=== PATIENT | male | born 1935 | race Caucasian/White ===

== ENCOUNTER 2023-02-16 16:12 | Inpatient (IN) | payer OTHER, SELFPAY ==
[2023-02-16] VITALS (29 sets, daily range): BP systolic 83–114; BP diastolic 51–72; PULSE 57–92; RESP 10–41; TEMP 36.2; O2SAT 88–100; BMI 21.9
--- NOTE | 2023-02-16 19:08 | ED.GENADULT ---
HPI - General Adult General Chief complaint: Abdominal Pain Stated complaint: Hypotension Time Seen by Provider: 02/16/23 18:01 Source: patient, family and EMS Mode of arrival: EMS Limitations: no limitations History of Present Illness HPI narrative: Patient is an 87-year-old male. He is a DNR/DNI with selective treatment. His POLST form is available for review. He was brought to the emergency department from [facility] for evaluation of jaundice for the past couple days, right upper quadrant abdominal pain and then today episodes of hypotension. Patient states that he is not having any changes in his urine or his stool. He is on oxygen and this is baseline for him and he does not have any chest pain or shortness of breath. No palpitations. He describes pain in the upper portion of his abdomen specifically on the right. Somewhat difficult for him to complete describe how long this has been going on but it has least been there for the past couple days. He denies any vomiting. He states he is taking all the medicines that the facility is giving him. He does have bilateral lower extremity edema where he does have a history CHF. Related Data Allergies Allergy/AdvReac Type Severity Reaction Status Date / Time amoxicillin [From Augmentin] Allergy Verified 02/17/23 00:20 clavulanic acid Allergy Verified 02/17/23 00:20 [From Augmentin] ezetimibe Allergy Verified 02/17/23 00:20 lisinopril Allergy Verified 02/17/23 00:20 Penicillins Allergy Verified 02/17/23 00:20 Uhsohat-DMG-PsA Reductase Allergy Verified 02/17/23 00:20 Inhibitor cholestyramine AdvReac Verified 02/17/23 00:20 Review of Systems Review of Systems ROS Unobtainable: All systems reviewed & are unremarkable except as noted in HPI and below Patient History Medical History Anxiety Atrial fibrillation BPH (benign prostatic hyperplasia) CHF (congestive heart failure) COPD (chronic obstructive pulmonary disease) 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 H/O gastroesophageal reflux (GERD) Hyperlipidemia Exam Initial Vital Signs Initial Vital Signs: Vital Signs Pulse Rate 66 02/16/23 16:25 Respiratory Rate 36 H 02/16/23 16:25 Const General: cooperative, well developed and ill appearing [facility] Head: normal to inspection and normocephalic Eyes Other: Scleral icterus Chest Chest: No crepitus and No tenderness Resp Effort & Inspection: normal respiratory effort Auscultation: clear to auscultation bilaterally Cardio Rate: regular rate Rhythm: regular rhythm GI Inspection: normal to inspection and non-distended Palpation: soft and tender (Right upper quadrant) Skin Other: Jaundice Neuro General: patient alert, patient awake and moves all extremities Speech: speech normal Extrem General: edema Course Orders Ordered: Sodium Chloride (Normal Saline 0.9%) 1,000 mls @ 125 mls/hr IV CONT KEELY Last Admin: 02/16/23 23:05 Dose: 125 mls/hr Documented By: Discontinued Medications Sodium Chloride (Normal Saline 0.9%) 1,000 mls @ 1,000 mls/hr IV BOLUS ONE Stop: 02/16/23 20:08 Last Infusion: 02/16/23 22:00 Dose: 0 mls/hr Documented By: Admin: 02/16/23 20:15 Dose: 1,000 mls/hr Documented By: Vital Signs Vital signs: Vital Signs - 8 hr 02/16/23 22:45 02/16/23 22:45 02/16/23 22:56 Pulse Rate 67 Respiratory Rate 11 L Blood Pressure 83/56 L 83/57 L Pulse Oximetry 92 Oxygen Delivery Method Oxygen Flow Rate 02/16/23 22:56 02/16/23 23:00 02/16/23 23:00 Pulse Rate 66 67 Respiratory Rate 10 L 10 L Blood Pressure 106/68 Pulse Oximetry 88 L 100 Oxygen Delivery Method Oxygen Flow Rate 02/16/23 23:15 02/16/23 23:15 02/16/23 23:30 Pulse Rate 67 70 Respiratory Rate 10 L 19 Blood Pressure 114/55 L Pulse Oximetry 99 99 Oxygen Delivery Method Oxygen Flow Rate 02/16/23 23:45 02/16/23 23:45 02/17/23 00:00 Pulse Rate 62 Respiratory Rate 12 Blood Pressure 103/56 L 99/56 L Pulse Oximetry 96 Oxygen Delivery Method Oxygen Flow Rate 02/17/23 00:00 02/17/23 00:15 02/17/23 00:15 Pulse Rate 59 L 63 Respiratory Rate 10 L 10 L Blood Pressure 96/57 L Pulse Oximetry 97 97 Oxygen Delivery Method Nasal Cannula Oxygen Flow Rate 4 02/17/23 00:30 02/17/23 00:30 02/17/23 00:45 Pulse Rate 64 68 Respiratory Rate 19 22 Blood Pressure 109/78 Pulse Oximetry 92 93 Oxygen Delivery Method Nasal Cannula Oxygen Flow Rate 4 02/17/23 00:45 02/17/23 01:00 02/17/23 01:00 Pulse Rate 62 Respiratory Rate 11 L Blood Pressure 93/59 L 104/53 L Pulse Oximetry 100 Oxygen Delivery Method Oxygen Flow Rate 02/17/23 01:15 02/17/23 01:15 02/17/23 01:30 Pulse Rate 64 Respiratory Rate 10 L Blood Pressure 94/55 L 95/65 Pulse Oximetry 100 Oxygen Delivery Method Oxygen Flow Rate 02/17/23 01:30 02/17/23 01:45 02/17/23 01:45 Pulse Rate 64 68 Respiratory Rate 11 L 13 Blood Pressure 98/66 Pulse Oximetry 100 100 Oxygen Delivery Method Oxygen Flow Rate 02/17/23 02:00 02/17/23 02:00 02/17/23 02:15 Pulse Rate 63 Respiratory Rate 11 L Blood Pressure 105/61 93/54 L Pulse Oximetry 99 Oxygen Delivery Method Oxygen Flow Rate 02/17/23 02:15 02/17/23 02:30 02/17/23 02:45 Pulse Rate 60 59 L Respiratory Rate 10 L 10 L Blood Pressure 90/57 L Pulse Oximetry 99 99 Oxygen Delivery Method Oximask Oxygen Flow Rate 4 02/17/23 02:45 02/17/23 03:00 02/17/23 03:00 Pulse Rate 63 61 Respiratory Rate 9 L 10 L Blood Pressure 86/52 L Pulse Oximetry 99 100 Oxygen Delivery Method Oxygen Flow Rate 02/17/23 03:16 02/17/23 03:16 02/17/23 03:30 Pulse Rate 80 87 Respiratory Rate 20 22 Blood Pressure 92/67 Pulse Oximetry 99 95 Oxygen Delivery Method Nasal Cannula Nasal Cannula Oxygen Flow Rate 2 2 02/17/23 04:00 02/17/23 04:00 02/17/23 04:30 Pulse Rate 70 68 Respiratory Rate 21 18 Blood Pressure 90/61 Pulse Oximetry 98 99 Oxygen Delivery Method Nasal Cannula Nasal Cannula Oxygen Flow Rate 2 2 02/17/23 05:00 02/17/23 05:00 02/17/23 05:30 Pulse Rate 67 73 Respiratory Rate 20 19 Blood Pressure 104/63 Pulse Oximetry 100 99 Oxygen Delivery Method Nasal Cannula Nasal Cannula Oxygen Flow Rate 2 2 Medical Decision Making Medical Records Medical records reviewed: Yes I reviewed the patient's medical records. Lab Data Lab results reviewed: Yes I reviewed the patient's lab results. 02/16/23 17:00 02/16/23 17:00 Labs: Lab Results 02/16/23 02/16/23 02/16/23 Range/Units 17:00 17:00 17:00 WBC 6.6 (4.5-11.0) X10^3/uL RBC 3.34 L (4.5-5.9) X10^6/uL Hgb 10.6 L (13.5-17.5) g/dL Hct 31.3 L (41-53) % MCV 93.8 (80-100) fL MCH 31.7 (26-34) PG MCHC 33.8 (30-36) % RDW 20.6 H (11.6-14.8) % Plt Count 171 (150-400) X10^3/uL Neut % (Auto) 87.5 H (50-75) % Lymph % (Auto) 4.0 L (25-40) % [place] % (Auto) 8.1 (3-14) % Eos % (Auto) 0.3 L (2-4) % Baso % (Auto) 0.1 (0-2) % Neut # (Auto) 5800 (5407-6820) /uL Lymph # (Auto) 300 L (3763-6867) /uL [place] # (Auto) 500 (0-900) /uL Eos # (Auto) 0 (0-450) /uL Baso # (Auto) 0 (0-100) /uL RBC Morphology See below Hypochromasia 1+ H Target Cells 1+ H PT (10.1-12.7) SECONDS INR (0.9-1.3) APTT (26-36) SECONDS Sodium 138 (137-145) mmol/L Potassium 3.3 L (3.4-5.1) mmol/L Chloride 93 L (98-107) mmol/L Carbon Dioxide 35 H (22-32) mmol/L BUN 41 H (9-20) mg/dL Creatinine 1.28 H (0.66-1.25) mg/dL Estimated GFR 55 L (>60) mL/min BUN/Creatinine Ratio 32.0 H (6-22) Glucose 85 (80-110) mg/dL Lactate 1.0 (0.7-2.1) mmol/L Calcium 8.2 L (8.4-10.2) mg/dL Total Bilirubin 13.4 H (0.2-1.3) mg/dL Conjugated Bilirubin 9.3 H (0.0-0.3) md/dL Unconjugated Bilirubin 1.6 H (0.0-1.1) mg/dL AST 209 H (17-59) IU/L ALT 84 H (<50) IU/L Alkaline Phosphatase 1094 H (38-126) U/L Ammonia (9-30) umol/L Total Protein 6.2 L (6.3-8.2) g/dL Albumin 2.8 L (3.5-5.0) g/dL Globulin 3.4 (1.7-4.1) g/dL Albumin/Globulin Ratio 0.8 L (1.0-2.8) Lipase 180 (23-300) U/L Acetaminophen < 10 (10-30) ug/mL Ethyl Alcohol < 10 ( - 10) mg/dL 02/16/23 02/16/23 Range/Units 17:00 19:50 WBC (4.5-11.0) X10^3/uL RBC (4.5-5.9) X10^6/uL Hgb (13.5-17.5) g/dL Hct (41-53) % MCV (80-100) fL MCH (26-34) PG MCHC (30-36) % RDW (11.6-14.8) % Plt Count (150-400) X10^3/uL Neut % (Auto) (50-75) % Lymph % (Auto) (25-40) % [place] % (Auto) (3-14) % Eos % (Auto) (2-4) % Baso % (Auto) (0-2) % Neut # (Auto) (4106-0503) /uL Lymph # (Auto) (1943-2731) /uL [place] # (Auto) (0-900) /uL Eos # (Auto) (0-450) /uL Baso # (Auto) (0-100) /uL RBC Morphology Hypochromasia Target Cells PT 21.6 H (10.1-12.7) SECONDS INR 1.9 H (0.9-1.3) APTT 34 (26-36) SECONDS Sodium (137-145) mmol/L Potassium (3.4-5.1) mmol/L Chloride (98-107) mmol/L Carbon Dioxide (22-32) mmol/L BUN (9-20) mg/dL Creatinine (0.66-1.25) mg/dL Estimated GFR (>60) mL/min BUN/Creatinine Ratio (6-22) Glucose (80-110) mg/dL Lactate (0.7-2.1) mmol/L Calcium (8.4-10.2) mg/dL Total Bilirubin (0.2-1.3) mg/dL Conjugated Bilirubin (0.0-0.3) md/dL Unconjugated Bilirubin (0.0-1.1) mg/dL AST (17-59) IU/L ALT (<50) IU/L Alkaline Phosphatase (38-126) U/L Ammonia 10 (9-30) umol/L Total Protein (6.3-8.2) g/dL Albumin (3.5-5.0) g/dL Globulin (1.7-4.1) g/dL Albumin/Globulin Ratio (1.0-2.8) Lipase (23-300) U/L Acetaminophen (10-30) ug/mL Ethyl Alcohol ( - 10) mg/dL Imaging Data CT scan - abdomen/pelvis: Radiologist's Impression: PROCEDURE:? CT ABDOMEN PELVIS W CON ? INDICATIONS:? Hyperbilirubinemia with abdominal pain ? TECHNIQUE:? After the administration of intravenous contrast, axial sections acquired from the lung bases to the pubic symphysis.? Coronal and sagittal reformats were performed.? For radiation dose reduction, the following was used:? automated exposure control, adjustment of mA and/or kV according to patient size.? ? COMPARISON:? None. ? FINDINGS:? Image quality:? Excellent.? ? Lung bases:? Moderate pleural effusions. Heart:? Cardiomegaly. ? ABDOMEN: Liver:? Unremarkable.? ? Gallbladder:? Marked distension.? No stones. Biliary ducts:? Marked distension.? Abrupt termination in the pancreatic head. Pancreas:? Pancreatic head mass measuring 3.2 x 2.4 centimeters (series 4, image 41).? Pancreatic atrophy.? No significant pancreatic ductal dilation.? Scattered pancreatic cystic lesions. Spleen:? Unremarkable.? ? Adrenal Glands:? Unremarkable.? ? Kidneys and Ureters:? No hydronephrosis.? No complex renal cystic lesions which require follow-up. ? Stomach and Bowel: Colonic diverticulosis without evidence of diverticulitis. Peritoneum:? Small volume ascites. ? Ventral Wall:? ?No hernias.? Anasarca.? Abdominal Nodes:? No retroperitoneal or mesenteric adenopathy by size criteria.? Vessels:? 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 Ectatic right common iliac artery.? Occluded right internal iliac artery. ? PELVIS: Pelvic Organs:? Unremarkable.? ? Bladder:? Unremarkable.? ? Pelvic Nodes: No enlarged lymph nodes.? Miscellaneous:? Trace fluid within the right inguinal canal. ? Bones:? Degenerative changes present. ? ? IMPRESSION:? Obstructing 3.2 x 2.1 centimeter mass in the pancreatic head, resulting in severe intrahepatic and extrahepatic biliary dilation, and severe gallbladder distension with focal wall thickening.? Differential includes pancreatic adenocarcinoma versus cholangiocarcinoma.? No pancreatic ductal dilation. ? Third-spacing of fluids, with moderate pleural effusions, anasarca and small volume ascites. ? Other chronic findings as above.? US - abdomen: Radiologist's Impression: ROCEDURE: US ABDOMEN LIMITED ? INDICATIONS:? Hyperbilirubinemia ? TECHNIQUE:? Real-time focused scanning was performed of the abdomen, with image documentation.? ? COMPARISON:? [facility], CT, CT ABDOMEN PELVIS W CON, 02/16/2023, 19:37. ? FINDINGS:? ? Liver: The liver demonstrates no focal mass lesions.? ? Gallbladder: The gallbladder is markedly distended suggestive of gallbladder hydrops.? There is layering biliary sludge in the gallbladder without discrete stones.? There is a small amount of pericholecystic fluid.? Patient was reportedly tender on examination. ? Biliary system:? There is marked intrahepatic biliary ductal dilatation.? Extrahepatic ducts are also dilated, measuring up to 1.3 cm in diameter with layering sludge distally. ? Pancreas:? Not well seen due to bowel gas. ? IMPRESSION:? ? 1. Intra and extrahepatic biliary ductal dilatation consistent with sequelae of obstructing mass in the pancreatic head as seen on the concurrent CT. ? 2. Hydropic distention of the gallbladder with layering biliary sludge.? No gallstones or gallbladder wall thickening.? ECG Data Attestation: I personally reviewed and interpreted this ECG as follows: Interpretation: Ventricular rate is 60 Normal axis LVH Occasional ventricular paced rhythm MDM Narrative Medical decision making narrative: Patient is visibly jaundiced. He reports right upper quadrant abdominal pain. His bilirubin and LFTs are elevated. CT scan and right upper quadrant ultrasound show what appears to be a pancreatic head mass which is causing dilation of the hepatobiliary system. This is most likely the source of his jaundice. I did have a discussion with the patient's family regarding his symptoms. I did recommend that we transfer to a facility that has GI capability for stent placement and then there can be further discussions about how much more of a workup they would like to do with regard to the pancreatic mass. I did tell them that this was concerning for malignancy. The family was agreeable to transfer. The patient was resting comfortably. Attempted to contact multiple facilities and [facility] and there were no beds available. We will continue to observe patient here in the emergency department until bed placement can be found. Care turned over to day provider to follow-up and disposition.
--- NOTE | 2023-02-16 19:09 | DI.CT.S_ITS ---
PROCEDURE: CT ABDOMEN PELVIS W CON INDICATIONS: Hyperbilirubinemia with abdominal pain TECHNIQUE: After the administration of intravenous contrast, axial sections acquired from the lung bases to the pubic symphysis. Coronal and sagittal reformats were performed. For radiation dose reduction, the following was used: automated exposure control, adjustment of mA and/or kV according to patient size. COMPARISON: None. FINDINGS: Image quality: Excellent. Lung bases: Moderate pleural effusions. Heart: Cardiomegaly. ABDOMEN: Liver: Unremarkable. Gallbladder: Marked distension. No stones. Biliary ducts: Marked distension. Abrupt termination in the pancreatic head. Pancreas: Pancreatic head mass measuring 3.2 x 2.4 centimeters (series 4, image 41). Pancreatic atrophy. No significant pancreatic ductal dilation. Scattered pancreatic cystic lesions. Spleen: Unremarkable. Adrenal Glands: Unremarkable. Kidneys and Ureters: No hydronephrosis. No complex renal cystic lesions which require follow-up. Stomach and Bowel: Colonic diverticulosis without evidence of diverticulitis. Peritoneum: Small volume ascites. Ventral Wall: No hernias. Anasarca. Abdominal Nodes: No retroperitoneal or mesenteric adenopathy by size criteria. 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 Ectatic right common iliac artery. Occluded right internal iliac artery. PELVIS: Pelvic Organs: Unremarkable. Bladder: Unremarkable. Pelvic Nodes: No enlarged lymph nodes. Miscellaneous: Trace fluid within the right inguinal canal. Bones: Degenerative changes present. IMPRESSION: Obstructing 3.2 x 2.1 centimeter mass in the pancreatic head, resulting in severe intrahepatic and extrahepatic biliary dilation, and severe gallbladder distension with focal wall thickening. Differential includes pancreatic adenocarcinoma versus cholangiocarcinoma. No pancreatic ductal dilation. Third-spacing of fluids, with moderate pleural effusions, anasarca and small volume ascites. Other chronic findings as above. Dictated by: Jean Motley M.D. on 02/16/2023 at 20:11 Approved by: Jean Motley M.D. on 02/16/2023 at 20:17
--- NOTE | 2023-02-16 19:10 | DI.US.S_ITS ---
PROCEDURE: US ABDOMEN LIMITED INDICATIONS: Hyperbilirubinemia TECHNIQUE: Real-time focused scanning was performed of the abdomen, with image documentation. COMPARISON: [facility], CT, CT ABDOMEN PELVIS W CON, 02/16/2023, 19:37. FINDINGS: Liver: The liver demonstrates no focal mass lesions. Gallbladder: The gallbladder is markedly distended suggestive of gallbladder hydrops. There is layering biliary sludge in the gallbladder without discrete stones. There is a small amount of pericholecystic fluid. Patient was reportedly tender on examination. Biliary system: There is marked intrahepatic biliary ductal dilatation. Extrahepatic ducts are also dilated, measuring up to 1.3 cm in diameter with layering sludge distally. Pancreas: Not well seen due to bowel gas. IMPRESSION: 1. Intra and extrahepatic biliary ductal dilatation consistent with sequelae of obstructing mass in the pancreatic head as seen on the concurrent CT. 2. Hydropic distention of the gallbladder with layering biliary sludge. No gallstones or gallbladder wall thickening. Dictated by: Carl Gong M.D. on 02/16/2023 at 21:53 Approved by: Carl Gong M.D. on 02/16/2023 at 21:56
[2023-02-16 19:26] LABS: Add Manual Diff / Slide Review NO; Basophils Absolute Auto 0 /uL (0-100); Basophils Percent Auto 0.1 % (0-2); Eosinophils Absolute Auto 0 /uL (0-450); Eosinophils Percent Auto 0.3 % (2-4); Hematocrit 31.3 % (41-53); Hemoglobin 10.6 g/dL (13.5-17.5); Lymphocytes Absolute Auto 300 /uL (1100-4500); Mean Corpuscular HGB Conc 33.8 % (30-36); Mean Corpuscular Hemoglobin 31.7 PG (26-34); Mean Corpuscular Volume 93.8 fL (80-100); Monocytes Absolute Auto 500 /uL (0-900); Monocytes Percent Auto 8.1 % (3-14); Neutrophils Absolute Auto 5800 /uL (1500-7000); Neutrophils Percent Auto 87.5 % (50-75); Platelet Count 171 X10^3/uL (150-400); Red Blood Cell Count 3.34 X10^6/uL (4.5-5.9); Red Cell Distribution Width 20.6 % (11.6-14.8); White Blood Cell Count 6.6 X10^3/uL (4.5-11.0)
[2023-02-16 19:27] LABS: INR 1.9 (0.9-1.3); Prothrombin Time 21.6 SECONDS (10.1-12.7)
[2023-02-16 19:30] LABS: PTT Partial Thromboplastin Tim 34 SECONDS (26-36)
[2023-02-16 19:34] LABS: Acetaminophen < 10 ug/mL (10-30); Alanine Aminotransferase 84 IU/L (<50); Albumin 2.8 g/dL (3.5-5.0); Albumin Globulin Ratio 0.8 (1.0-2.8); Alkaline Phosphatase 1094 U/L (38-126); Aspartate Aminotransferase 209 IU/L (17-59); Bilirubin Conjugated 9.3 md/dL (0.0-0.3); Bilirubin Total 13.4 mg/dL (0.2-1.3); Bilirubin Unconjugated 1.6 mg/dL (0.0-1.1); Blood Urea Nitrogen 41 mg/dL (9-20); Calcium 8.2 mg/dL (8.4-10.2); Chloride 93 mmol/L (98-107); Estimated Glomerular Filt Rate 55 mL/min (>60); Ethanol (ETOH) < 10 mg/dL; Globulin 3.4 g/dL (1.7-4.1); Glucose 85 mg/dL (80-110); HEMOLYSIS < 15 (0-50); Lipase 180 U/L (23-300); Potassium 3.3 mmol/L (3.4-5.1); Sodium 138 mmol/L (137-145); Total Protein 6.2 g/dL (6.3-8.2)
[2023-02-16 19:39] LABS: Carbon Dioxide 35 mmol/L (22-32)
[2023-02-16 20:13] LABS: Ammonia (NH3) 10 umol/L (9-30)
[2023-02-16] MEDS: SODIUM CHLORIDE 0.9% 1,000 ML 1000 ML IV (20:15)
[2023-02-16 20:19] LABS: Hypochromasia 1+; Target Cells 1+
--- NOTE | 2023-02-16 21:53 | PC.NURSE ---
Pt sleeping, rouses to voice, A&Ox4. Family at bedside.
[2023-02-16] MEDS: SODIUM CHLORIDE 0.9% 1,000 ML 125 ML IV (23:05)
[2023-02-17] VITALS (97 sets, daily range): BP systolic 86–125; BP diastolic 52–85; PULSE 59–90; RESP 9–36; TEMP 35.9–37.1; O2SAT 83–100; BMI 21.9
--- NOTE | 2023-02-17 01:56 | PC.NURSE ---
OLIVE KNOCKER note: Attempting to find bed to transfer patient to. Called the following hospitals, at the following times, with the following responses: 2244: [facility]. No med-surg beds. Faxed over facesheet, on waitlist. 2248:[facility], 10 boarding in their ER. No beds. Faxed over facesheet, on waitlist [id number] [facility] [place]: Andrea, asked me to send over [facility], pushed images. Checked at 0144, no beds. But on list. 0144: [facility]: [facility]. No beds at [facility], and the ER is level loading at [place] (I didn't know what that meant, but she said no beds) 0150: [place]. Left message for household appliance mechanic to call me back. 0153: [place], no med surg beds.
[2023-02-17] MEDS: SODIUM CHLORIDE 0.9% 1,000 ML 125 ML IV (07:16)
[2023-02-17] MEDS: SODIUM CHLORIDE 0.9% 1,000 ML 100 ML IV (08:51)
[2023-02-17 08:53] LABS: Add Manual Diff / Slide Review NO; Basophils Absolute Auto 0 /uL (0-100); Basophils Percent Auto 0.1 % (0-2); Eosinophils Absolute Auto 0 /uL (0-450); Eosinophils Percent Auto 0.5 % (2-4); Hematocrit 33.6 % (41-53); Hemoglobin 11.3 g/dL (13.5-17.5); Lymphocytes Absolute Auto 200 /uL (1100-4500); Lymphocytes Percent Auto 3.7 % (25-40); Mean Corpuscular HGB Conc 33.6 % (30-36); Mean Corpuscular Hemoglobin 31.7 PG (26-34); Mean Corpuscular Volume 94.3 fL (80-100); Monocytes Absolute Auto 400 /uL (0-900); Monocytes Percent Auto 6.6 % (3-14); Neutrophils Absolute Auto 5900 /uL (1500-7000); Neutrophils Percent Auto 89.1 % (50-75); Platelet Count 166 X10^3/uL (150-400); Red Blood Cell Count 3.56 X10^6/uL (4.5-5.9); Red Cell Distribution Width 20.6 % (11.6-14.8); White Blood Cell Count 6.7 X10^3/uL (4.5-11.0)
--- NOTE | 2023-02-17 08:54 | DI.RAD.S_ITS ---
PROCEDURE: XR CHEST 1V INDICATIONS: sob TECHNIQUE: One view of the chest was acquired. COMPARISON: None. FINDINGS: Surgical changes and devices: Left subclavian vascular stent. Remote CABG. Lungs and pleura: Pulmonary edema. Question underlying chronic interstitial pulmonary fibrosis. Small bilateral pleural effusions and bibasilar atelectasis. Mediastinum: Mediastinal contours appear normal. Cardiomegaly. Bones and chest wall: No suspicious bony lesions. Overlying soft tissues appear unremarkable. IMPRESSION: Congestive heart failure exacerbation. Question underlying chronic pulmonary interstitial fibrosis. Dictated by: Ye Ojeda M.D. on 02/17/2023 at 9:50 Approved by: Ye Ojeda M.D. on 02/17/2023 at 9:52
[2023-02-17 09:06] LABS: Lactate (Lactic Acid) 0.8 mmol/L (0.7-2.1)
[2023-02-17 09:08] LABS: Alanine Aminotransferase 74 IU/L (<50); Albumin 2.6 g/dL (3.5-5.0); Albumin Globulin Ratio 0.8 (1.0-2.8); Alkaline Phosphatase 1017 U/L (38-126); Aspartate Aminotransferase 190 IU/L (17-59); BUN Creatinine Ratio 35.5 (6-22); Bilirubin Total 13.4 mg/dL (0.2-1.3); Blood Urea Nitrogen 39 mg/dL (9-20); Carbon Dioxide 35 mmol/L (22-32); Chloride 98 mmol/L (98-107); Estimated Glomerular Filt Rate > 60 mL/min (>60); Globulin 3.1 g/dL (1.7-4.1); Glucose 56 mg/dL (80-110); HEMOLYSIS 24 (0-50); Lipase 47 U/L (23-300); Potassium 3.3 mmol/L (3.4-5.1); Sodium 140 mmol/L (137-145); Total Protein 5.7 g/dL (6.3-8.2)
[2023-02-17 09:16] LABS: NT-proBNP (BNP-Adult 18+) 6010 pg/mL (<450)
[2023-02-17 09:20] LABS: Anisocytosis 1+; Ovalocytes 1+
[2023-02-17] MEDS: AMIODARONE 150 MG/100 ML PIGGYBACK 600 MG IV (10:01)
--- NOTE | 2023-02-17 10:18 | PC.NURSE ---
BOARD CERTIFIED BEHAVIORAL ANALYST Note: Called the hospitals for pt on the waitlist. [facility] and [facility] still boarding and have no beds. Spoke with Rochelle at [facility] and stated that pt was not put on the list, so I proceeded to put them on their list. called back stating that pt has [employer] as primary insurance with them, so this BOARD CERTIFIED BEHAVIORAL ANALYST proceeded to call the [facility] to make sure it was clear to proceed with the transfer request. Pt has been called into the [facility] emergency hotline. Spoke with rep Rogers. Notification number: [id number]
--- NOTE | 2023-02-17 10:32 | PC.NURSE ---
This RN assisted in changing the patient immediately after an episode of incontinence. RN noted stage two pressure ulcer on coccyx. Open area 3cm in diameter with no measurable depth. Skin cleaned with wipe and normal saline. Ulcer covered with pink adhesive foam dressing. For patient comfort condom catheter placed with patient approval. catheter secured to leg with left band to patient comfort.
[2023-02-17] MEDS: AMIODARONE 360 MG/200 ML PIGGYBACK 33.33 MG IV (11:41)
[2023-02-17 13:26] LABS: Magnesium 1.7 mg/dL (1.6-2.3)
--- NOTE | 2023-02-17 13:51 | P.HP_ITS ---
History of Present Illness History of Present Illness Date Patient Seen: 02/17/23 Chief complaint: Hypotension Narrative: Alvaro Thompson is an 87-year-old male with past medical history of diffuse large B-cell lymphoma, CHF, atrial fibrillation on Eliquis s/p pacemaker, HTN, HLD, COPD, GERD, BPH, and anxiety who presents with jaundice with abd pain and in A- fib RVR. Patient was recently at [facility] for CHF exacerbation and was discharged to [facility] where he has been the past 3 weeks. He then developed acute jaundice and abd pain. CT abd in ED showed pancreatic head mass obstructing biliary system. Attempted transfer for biliary stent but he was denied and deemed too high risk for any procedure. Hospice was suggested. He had runs of A-fib RVR in the ED and amio drip started due to low BP. He will be admitted for medical management of A-fib RVR, pain control and hospice setup. Patient currently reports intermittent upper abd pain. But it is currently well- controlled. He has no NV or diarrhea. He is accepting that this new diagnosis of terminal pancreatic cancer and just wishes to not suffer at the end. [facility] Medical History Anxiety Atrial fibrillation BPH (benign prostatic hyperplasia) CHF (congestive heart failure) COPD (chronic obstructive pulmonary disease) 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 H/O gastroesophageal reflux (GERD) Hyperlipidemia Social History Smoking Status: Former smoker Meds Home Medications and Allergies Home Medications Medication Instructions Recorded Confirmed Type albuterol sulfate 90 mcg/actuation 2 puff inhalation Q6HR PRN 02/17/23 02/17/23 History aerosol inhaler Shortness Of Breath apixaban 5 mg tablet (Eliquis) 2.5 mg PO BID 02/17/23 02/17/23 History brimonidine 0.2 % eye drops 1 drp EYE-RIGHT DAILY 02/17/23 02/17/23 History cholecalciferol (vitamin D3) 50 50 mcg PO DAILY 02/17/23 02/17/23 History mcg (2,000 unit) tablet finasteride 5 mg tablet 5 mg PO DAILY 02/17/23 02/17/23 History latanoprost 0.005 % eye drops 1 drp EYE-RIGHT DAILY 02/17/23 02/17/23 History losartan 25 mg tablet 12.5 mg PO DAILY PRN Hypertension 02/17/23 02/17/23 History metoprolol succinate 50 mg 25 mg PO BID 02/17/23 02/17/23 History tablet,extended release 24 hr nitroglycerin 0.4 mg sublingual 0.4 mg sublingual Q5M PRN Chest 02/17/23 02/17/23 History tablet Pain prednisone 20 mg tablet 20 mg PO DAILY 02/17/23 02/17/23 History spironolactone 25 mg tablet 12.5 mg PO DAILY 02/17/23 02/17/23 History tamsulosin 0.4 mg capsule 0.4 mg PO DAILY 02/17/23 02/17/23 History timolol maleate 0.5 % eye drops 1 drp EYE-RIGHT DAILY 02/17/23 02/17/23 History Allergies Allergy/AdvReac Type Severity Reaction Status Date / Time amoxicillin [From Augmentin] Allergy Verified 02/17/23 00:20 clavulanic acid Allergy Verified 02/17/23 00:20 [From Augmentin] ezetimibe Allergy Verified 02/17/23 00:20 lisinopril Allergy Verified 02/17/23 00:20 Penicillins Allergy Verified 02/17/23 00:20 [id number] Reductase Allergy Verified 02/17/23 00:20 Inhibitor cholestyramine AdvReac Verified 02/17/23 00:20 Review of Systems Review of Systems Narrative: All other systems reviewed with the patient and are negative unless otherwise stated. Exam Vital Signs (past 8 hours): - 02/17/23 07:00 02/17/23 07:00 02/17/23 07:15 Pulse Rate 68 72 Respiratory Rate 11 L 10 L Blood Pressure 93/66 Pulse Oximetry 100 99 Oxygen Delivery Method Oxygen Flow Rate 02/17/23 07:30 02/17/23 07:45 02/17/23 08:00 Pulse Rate 69 69 Respiratory Rate 16 11 L Blood Pressure 100/70 Pulse Oximetry 99 100 Oxygen Delivery Method Oxygen Flow Rate 02/17/23 08:00 02/17/23 08:15 02/17/23 08:15 Pulse Rate 71 73 Respiratory Rate 16 13 Blood Pressure 107/61 Pulse Oximetry 100 99 Oxygen Delivery Method Nasal Cannula Oxygen Flow Rate 4 02/17/23 08:30 02/17/23 08:30 02/17/23 08:45 Pulse Rate 70 80 Respiratory Rate 10 L Blood Pressure 101/66 Pulse Oximetry 100 97 Oxygen Delivery Method Nasal Cannula Nasal Cannula Nasal Cannula Oxygen Flow Rate 4 4 02/17/23 08:49 02/17/23 09:00 02/17/23 09:00 Pulse Rate 90 Respiratory Rate Blood Pressure 103/68 107/66 Pulse Oximetry 99 Oxygen Delivery Method Nasal Cannula Oxygen Flow Rate 4 02/17/23 09:14 02/17/23 09:14 02/17/23 09:15 Pulse Rate 82 85 Respiratory Rate 18 Blood Pressure 122/81 Pulse Oximetry 97 97 Oxygen Delivery Method Nasal Cannula Nasal Cannula Oxygen Flow Rate 4 4 02/17/23 09:16 02/17/23 09:16 02/17/23 09:30 Pulse Rate 82 Respiratory Rate 18 Blood Pressure 118/72 116/65 Pulse Oximetry 98 Oxygen Delivery Method Nasal Cannula Oxygen Flow Rate 4 02/17/23 09:30 02/17/23 09:45 02/17/23 10:00 Pulse Rate 75 78 80 Respiratory Rate 17 23 Blood Pressure Pulse Oximetry 99 100 100 Oxygen Delivery Method Nasal Cannula Nasal Cannula Nasal Cannula Oxygen Flow Rate 4 4 02/17/23 10:01 02/17/23 10:01 02/17/23 10:15 Pulse Rate 79 Respiratory Rate Blood Pressure 96/68 108/63 Pulse Oximetry 100 Oxygen Delivery Method Nasal Cannula Oxygen Flow Rate 4 02/17/23 10:15 02/17/23 10:30 02/17/23 10:30 Pulse Rate 81 77 Respiratory Rate 30 H Blood Pressure 116/85 Pulse Oximetry 99 98 Oxygen Delivery Method Nasal Cannula Nasal Cannula Oxygen Flow Rate 4 4 02/17/23 10:35 02/17/23 10:35 02/17/23 10:45 Pulse Rate 77 Respiratory Rate Blood Pressure 116/78 111/76 Pulse Oximetry 99 Oxygen Delivery Method Nasal Cannula Oxygen Flow Rate 4 02/17/23 10:45 02/17/23 11:00 02/17/23 11:00 Pulse Rate 75 72 Respiratory Rate 32 H 25 H Blood Pressure 103/71 Pulse Oximetry 99 97 Oxygen Delivery Method Nasal Cannula Oxygen Flow Rate 4 4 02/17/23 11:15 02/17/23 11:15 02/17/23 11:30 Pulse Rate 78 Respiratory Rate 32 H Blood Pressure 110/73 119/66 Pulse Oximetry 99 Oxygen Delivery Method Oxygen Flow Rate 4 02/17/23 11:30 02/17/23 11:45 02/17/23 11:45 Pulse Rate 73 69 Respiratory Rate 36 H 15 Blood Pressure 103/62 Pulse Oximetry 99 99 Oxygen Delivery Method Oxygen Flow Rate 4 4 02/17/23 12:00 02/17/23 12:00 02/17/23 12:15 Pulse Rate 79 Respiratory Rate 30 H Blood Pressure 117/66 118/78 Pulse Oximetry 100 Oxygen Delivery Method Oxygen Flow Rate 4 02/17/23 12:15 02/17/23 12:30 02/17/23 12:30 Pulse Rate 84 81 Respiratory Rate 26 H 20 Blood Pressure 115/77 Pulse Oximetry 94 98 Oxygen Delivery Method Oxygen Flow Rate 4 4 02/17/23 12:45 02/17/23 12:45 02/17/23 13:00 Pulse Rate 78 84 Respiratory Rate 29 H 26 H Blood Pressure 123/75 Pulse Oximetry 94 98 Oxygen Delivery Method Nasal Cannula Nasal Cannula Oxygen Flow Rate 4 4 02/17/23 13:01 02/17/23 13:01 02/17/23 13:15 Pulse Rate 76 Respiratory Rate 19 Blood Pressure 122/69 125/73 Pulse Oximetry 97 Oxygen Delivery Method Nasal Cannula Oxygen Flow Rate 4 02/17/23 13:15 Pulse Rate 89 Respiratory Rate 27 H Blood Pressure Pulse Oximetry 99 Oxygen Delivery Method Nasal Cannula Oxygen Flow Rate 4 Oxygen Delivery Method Nasal Cannula Oxygen Flow Rate 4 Narrative Exam Narrative: GEN: ill-appearing elderly male who is diffusely jaundiced, cachectic HEENT: moist mucous membranes, PERRL NECK: trachea midline, no JVD CV: regular rate and rhythm, no murmurs PULM: clear bilaterally ABD: soft, RUQ tenderness, nondistended, no organomegaly EXT: warm and well perfused with no edema NEURO: awake, alert, oriented, no focal deficits Objective Labs 02/17/23 08:10 02/17/23 08:10 Labs: Laboratory Results - last 24 hr 02/16/23 02/16/23 02/16/23 17:00 17:00 17:00 WBC 6.6 RBC 3.34 L Hgb 10.6 L Hct 31.3 L MCV 93.8 MCH 31.7 MCHC 33.8 RDW 20.6 H Plt Count 171 Neut % (Auto) 87.5 H Lymph % (Auto) 4.0 L Craven % (Auto) 8.1 Eos % (Auto) 0.3 L Baso % (Auto) 0.1 Neut # (Auto) 5800 Lymph # (Auto) 300 L Craven # (Auto) 500 Eos # (Auto) 0 Baso # (Auto) 0 RBC Morphology See below Hypochromasia 1+ H Anisocytosis Target Cells 1+ H Ovalocytes PT INR APTT Sodium 138 Potassium 3.3 L Chloride 93 L Carbon Dioxide 35 H BUN 41 H Creatinine 1.28 H Estimated GFR 55 L BUN/Creatinine Ratio 32.0 H Glucose 85 Lactate 1.0 Calcium 8.2 L Magnesium Total Bilirubin 13.4 H Conjugated Bilirubin 9.3 H Unconjugated Bilirubin 1.6 H AST 209 H ALT 84 H Alkaline Phosphatase 1094 H Ammonia NT-Pro-B Natriuret Pep Total Protein 6.2 L Albumin 2.8 L Globulin 3.4 Albumin/Globulin Ratio 0.8 L Lipase 180 Acetaminophen < 10 Ethyl Alcohol < 10 02/16/23 02/16/23 02/17/23 17:00 19:50 08:10 WBC 6.7 RBC 3.56 L Hgb 11.3 L Hct 33.6 L MCV 94.3 MCH 31.7 MCHC 33.6 RDW 20.6 H Plt Count 166 Neut % (Auto) 89.1 H Lymph % (Auto) 3.7 L Craven % (Auto) 6.6 Eos % (Auto) 0.5 L Baso % (Auto) 0.1 Neut # (Auto) 5900 Lymph # (Auto) 200 L Craven # (Auto) 400 Eos # (Auto) 0 Baso # (Auto) 0 RBC Morphology See below Hypochromasia Anisocytosis 1+ H Target Cells Ovalocytes 1+ H PT 21.6 H INR 1.9 H APTT 34 Sodium Potassium Chloride Carbon Dioxide BUN Creatinine Estimated GFR BUN/Creatinine Ratio Glucose Lactate Calcium Magnesium Total Bilirubin Conjugated Bilirubin Unconjugated Bilirubin AST ALT Alkaline Phosphatase Ammonia 10 NT-Pro-B Natriuret Pep Total Protein Albumin Globulin Albumin/Globulin Ratio Lipase Acetaminophen Ethyl Alcohol 02/17/23 02/17/23 02/17/23 08:10 08:10 08:10 WBC RBC Hgb Hct MCV MCH MCHC RDW Plt Count Neut % (Auto) Lymph % (Auto) Craven % (Auto) Eos % (Auto) Baso % (Auto) Neut # (Auto) Lymph # (Auto) Craven # (Auto) Eos # (Auto) Baso # (Auto) RBC Morphology Hypochromasia Anisocytosis Target Cells Ovalocytes PT INR APTT Sodium 140 Potassium 3.3 L Chloride 98 Carbon Dioxide 35 H BUN 39 H Creatinine 1.10 Estimated GFR > 60 BUN/Creatinine Ratio 35.5 H Glucose 56 L Lactate 0.8 Calcium 8.0 L Magnesium Total Bilirubin 13.4 H Conjugated Bilirubin Unconjugated Bilirubin AST 190 H ALT 74 H Alkaline Phosphatase 1017 H Ammonia NT-Pro-B Natriuret Pep 6010 H Total Protein 5.7 L Albumin 2.6 L Globulin 3.1 Albumin/Globulin Ratio 0.8 L Lipase 47 D Acetaminophen Ethyl Alcohol 02/17/23 08:10 WBC RBC Hgb Hct MCV MCH MCHC RDW Plt Count Neut % (Auto) Lymph % (Auto) Craven % (Auto) Eos % (Auto) Baso % (Auto) Neut # (Auto) Lymph # (Auto) Craven # (Auto) Eos # (Auto) Baso # (Auto) RBC Morphology Hypochromasia Anisocytosis Target Cells Ovalocytes PT INR APTT Sodium Potassium Chloride Carbon Dioxide BUN Creatinine Estimated GFR BUN/Creatinine Ratio Glucose Lactate Calcium Magnesium 1.7 Total Bilirubin Conjugated Bilirubin Unconjugated Bilirubin AST ALT Alkaline Phosphatase Ammonia NT-Pro-B Natriuret Pep Total Protein Albumin Globulin Albumin/Globulin Ratio Lipase Acetaminophen Ethyl Alcohol Assessment & Plan Assessment & Plan narrative: Goals of care: Patient has been denied at tertiary care centers for pancreatic biliary stent given age and comorbidities. His family has agreed to pursue hospice and he is DNR/DNI. Pain meds and ativan PRN ordered. # obstructing pancreatic mass resulting in severe biliary dilatation, hyperbili rubinemia -CT with pancreatic head mass, intrahepatic/extrahepatic dilation -T-bili 13.4 -patient denied at for biliary stent, hospice suggested # A-fib with RVR -had runs of A-fib in the ED, cardiology recommended IV amio -continue amio drip # chronic hypoxic respiratory failure # CHF exacerbation -CXR with pulmonary edema -IV lasix given # HTN -hold home losartan as hypotensive # HLD -holding statin due to liver injury # GERD -continue PPI # BPH -hold home flomax, place leach if able for end of life care Code status is DNR/DNI. DVT prophylaxis with Lovenox. Proxy is terri Baumann. I have reviewed home meds and used all available resources to reconcile the home meds. I spent a total of 35 minutes of critical care time on this patient's care today; this time is exclusive of procedural time. This patient will be admitted as ICU and will require greater than 2 midnights of hospital time to treat AFib RVR, CHF exacerbation.
[2023-02-17] MEDS: POTASSIUM CHLORIDE IN WATER 10 MEQ/100 ML PIGGYBACK 100 MEQ IV (14:10)
[2023-02-17] MEDS: FUROSEMIDE 20 MG/2 ML VIAL IV (14:10)
[2023-02-17] MEDS: ENOXAPARIN 40 MG/0.4 ML SYRINGE SUBCUT (14:10)
[2023-02-17] MEDS: PANTOPRAZOLE 40 MG VIAL IV (14:53)
[2023-02-17] MEDS: AMIODARONE 360 MG/200 ML PIGGYBACK 16.7 MG IV (17:21)
[2023-02-17 20:40] LABS: MRSA (Nasal) PCR Not Detected (Not Detect)
[2023-02-18] VITALS (68 sets, daily range): BP systolic 81–135; BP diastolic 54–84; PULSE 56–73; RESP 12–31; TEMP 35.8–36.6; O2SAT 83–98
[2023-02-18 01:10] LABS: HBsAg Screen Negative (Negative); Hepatitis A Antibody IgM Negative (Negative); Hepatitis B Core Antibody IgM Negative (Negative); Hepatitis C Antibody Non Reactive (Non Reactive)
[2023-02-18] MEDS: PANTOPRAZOLE 40 MG VIAL IV (09:00)
--- NOTE | 2023-02-18 13:58 | P.PN_ITS ---
Subjective Subjective Interval history: Patient sleeping calmly and not awakened. Hospice can't open for a few days so SILICA FILTER OPERATOR arranging returning to [facility] until then. Exam Vital Signs (past 8 hours): - 02/18/23 06:00 02/18/23 06:00 02/18/23 07:00 Temperature Pulse Rate 60 Respiratory Rate 19 Blood Pressure 115/61 Oxygen Delivery Method Nasal Cannula 02/18/23 06:15 02/18/23 06:30 02/18/23 06:45 Temperature Pulse Rate 60 68 61 Respiratory Rate 15 27 H 14 Blood Pressure Oxygen Delivery Method 02/18/23 07:00 02/18/23 07:00 02/18/23 07:15 Temperature Pulse Rate 63 60 Respiratory Rate 13 15 Blood Pressure 116/71 Oxygen Delivery Method 02/18/23 07:30 02/18/23 07:45 02/18/23 08:00 Temperature 97.0 F L Pulse Rate 67 64 Respiratory Rate 13 27 H Blood Pressure 106/61 Oxygen Delivery Method 02/18/23 08:00 02/18/23 08:15 02/18/23 08:30 Temperature Pulse Rate 66 62 61 Respiratory Rate 18 17 31 H Blood Pressure Oxygen Delivery Method 02/18/23 08:45 02/18/23 09:00 02/18/23 09:02 Temperature Pulse Rate 70 65 71 Respiratory Rate 21 26 H 31 H Blood Pressure Oxygen Delivery Method 02/18/23 09:02 02/18/23 09:15 Temperature Pulse Rate 58 L Respiratory Rate 19 Blood Pressure 92/66 Oxygen Delivery Method Oxygen Delivery Method Nasal Cannula Oxygen Flow Rate 4 Narrative Exam Narrative: GEN: ill-appearing elderly male who is diffusely jaundiced, cachectic HEENT: moist mucous membranes, PERRL NECK: trachea midline, no JVD CV: regular rate and rhythm, no murmurs PULM: clear bilaterally ABD: soft, RUQ tenderness, nondistended, no organomegaly EXT: warm and well perfused with no edema NEURO: awake, alert, oriented, no focal deficits Objective Labs 02/17/23 08:10 02/17/23 08:10 Labs: Laboratory Results - last 24 hr 02/16/23 02/17/23 19:50 17:20 Nasal Screen MRSA (PCR) Not detected Hepatitis A IgM Ab Negative Hep Bs Antigen Negative Hep B Core IgM Ab Negative Hepatitis C Antibody Non reactive Hep C Ab Signal/Cutoff Comment PFSH Medical History Anxiety Atrial fibrillation BPH (benign prostatic hyperplasia) CHF (congestive heart failure) COPD (chronic obstructive pulmonary disease) 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 H/O gastroesophageal reflux (GERD) Hyperlipidemia Social History Smoking Status: Former smoker Assessment & Plan Assessment & Plan narrative: Goals of care: Patient has been denied at tertiary care centers for pancreatic biliary stent given age and comorbidities. His family has agreed to pursue hospice and he is DNR/DNI. Pain meds and ativan PRN ordered. # obstructing pancreatic mass resulting in severe biliary dilatation, hyperbilirubinemia -CT with pancreatic head mass, intrahepatic/extrahepatic dilation -T-bili 13.4 -patient denied at for biliary stent, hospice suggested -hospice now being arranged # A-fib with RVR -had runs of A-fib in the ED, cardiology recommended IV amio -finished amio drip # acute hypoxic respiratory failure -requiring 4L NC -cannot diurese further with low BP # CHF exacerbation -CXR with pulmonary edema -IV lasix given, limited by hypotension # HTN -hold home losartan as hypotensive # HLD -holding statin due to liver injury # GERD -continue PPI # BPH -continue home flomax Code status is DNR/DNI. DVT prophylaxis with Lovenox. Proxy is terri Baumann. Dispo: Pending hospice arrangement. 1-2 days.
[2023-02-18] MEDS: TIMOLOL 0.5% OPHTH 1 DROPS EYE-RIGHT (14:35)
[2023-02-18] MEDS: BRIMONIDINE 0.2% OPHTH 5 ML 1 DROPS EYE-RIGHT (14:35)
[2023-02-18] MEDS: TAMSULOSIN 0.4 MG CAPSULE PO (14:35)
[2023-02-18] MEDS: FINASTERIDE 5 MG TABLET PO (14:35)
--- NOTE | 2023-02-18 15:28 | CM.DANOTE ---
Initial DCP Assessment Note Pt is an 87 yo male, comes from [facility] and will be a new resident at [facility] in [place]: [address], [place] [address] admitted inpatient w/ obstructing pancreatic mass resulting in severe biliary dilatation, hyperbilirubinemia. Patient is not a surgical candidate and not a candidate for transfer so has decided on hospice at this time PCP: Unknown Payer: [place] (Patient appears to have MCR also) Reviewed chart, met w/patient to introduce self and role. Patient is A+O, speaks softly and slowly, confirms he will be discharging to an [facility] in [place] and would like hospice. Patient gives this [facility] permission to plan with his son Pastor Spoke w/son Pastor in room. Joining us was Richard Miller RN from [facility] P [phone] F [phone]. Clinical faxed Plan reviewed: Patient's items have all been moved into his apt at [facility] and Richard completing bedside assessment of need. [facility] has arranged for delivery of hospital bed Monday morning by [facility] and intend to start hospice services late morning/afternoon on Monday. Patient and son agreeable to this plan Richard from [facility] expects patient can admit Monday, transport via BLS, as long as they have a hospital bed for patient, signed med list (with comfort meds) DC Summary and signed move in orders faxed before patient arrives Confirmed above with [facility] geotechnical department manager today, faxed clinical information per her request ; [facility] P [phone] F [phone] Placed call to Katrina at [facility] to discuss admission while waiting in hospice services. December explains that while they would accept back under comfort measures, they cannot accept back for only two days POLST needed for BLS transport Plan: Discharge expected Monday as long as above criteria are met, to [facility] in [place] via BLS with [facility] following ARLENE Isabel Discharge Planning/Care Management CM Discharge Assessment Start: 02/18/23 15:25 Freq: Status: Active Protocol: Document 02/18/23 15:25 MEREDITH (Rec: 02/18/23 15:28 MEREDITH [id number]) Discharge Planning Assessment Assigned Field Sales Executive ARLENE Wahl DPOA/Assigned Designee Name terri Thakkar Contact Information [phone] Advance Directives? Yes Advance Directives on File No History Provided By Patient,Family Member,Medical Record Prior Living Arrangements Assisted Living Household Members other Type of transporation used prior to Relies on Others admit Independent with ADL's No Is patient alert and oriented? Yes Comment [facility]URSING HOME with [facility] Discharge Plan Hospice Transportation Arrangement [facility]
--- NOTE | 2023-02-18 18:53 | PC.NURSE ---
Pt has been medically stable this shift; he will be discharged to a facility on hospice on Monday; pt met with social work manager today and was baptised per his request; son was at bedside today and spoke w/ receiving facility RN and high risk case manager for [facility]
[2023-02-18] MEDS: APIXABAN 5 MG TABLET 2.5 MG PO (20:20)
--- NOTE | 2023-02-18 22:42 | PC.NURSE ---
2229- Patient temperature was 102.1 medicated per order and now temperature is 99.3. Sa02 88% placed on 2 liter nasal cannula. Discussed with Respiratory the need to check her on rounds. Lungs are diminished but clear. Heart rate was 125 now down to 107 once temperature treated. Will monitor closely.
[2023-02-18] MEDS: LORazepam 2 MG/ML INJ 0.5 MG IV (23:04)
[2023-02-19 07:48] VITALS: PULSE 101; O2SAT 85
[2023-02-19 07:49] VITALS: O2SAT 91
[2023-02-19] MEDS: PANTOPRAZOLE 40 MG VIAL IV (09:04)
[2023-02-19] MEDS: BRIMONIDINE 0.2% OPHTH 5 ML 1 DROPS EYE-RIGHT (09:05)
[2023-02-19] MEDS: APIXABAN 5 MG TABLET 2.5 MG PO ×2 (09:05→20:05)
[2023-02-19] MEDS: TAMSULOSIN 0.4 MG CAPSULE PO (09:05)
[2023-02-19] MEDS: FINASTERIDE 5 MG TABLET PO (09:05)
[2023-02-19] MEDS: TIMOLOL 0.5% OPHTH 1 DROPS EYE-RIGHT (09:05)
[2023-02-19] MEDS: LATANOPROST 0.005% OPHTH 2.5 ML 1 DROPS EYE-RIGHT (09:06)
[2023-02-19 09:25] VITALS: BP 88/59; RESP 17; TEMP 36.7
--- NOTE | 2023-02-19 13:57 | PM.PN.1 ---
Subjective Subjective Interval history: Patient with intermittent pain but tolerable. Will return to assisted living on hospice, likely tomorrow. Exam Vital Signs (past 8 hours): - 02/19/23 07:48 02/19/23 07:49 02/19/23 09:25 Temperature 98.1 F Pulse Rate 101 H Respiratory Rate 17 Blood Pressure 88/59 L Pulse Oximetry 85 L 91 Oxygen Delivery Method 02/19/23 07:00 Temperature Pulse Rate Respiratory Rate Blood Pressure Pulse Oximetry Oxygen Delivery Method Nasal Cannula Oxygen Delivery Method Nasal Cannula Oxygen Flow Rate 4 Narrative Exam Narrative: GEN: ill-appearing elderly male who is diffusely jaundiced, cachectic HEENT: moist mucous membranes, PERRL NECK: trachea midline, no JVD CV: regular rate and rhythm, no murmurs PULM: clear bilaterally ABD: soft, RUQ tenderness, nondistended, no organomegaly EXT: warm and well perfused with no edema NEURO: awake, alert, oriented, no focal deficits Objective Labs 02/17/23 08:10 02/17/23 08:10 [facility] Medical History Anxiety Atrial fibrillation BPH (benign prostatic hyperplasia) CHF (congestive heart failure) COPD (chronic obstructive pulmonary disease) 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 H/O gastroesophageal reflux (GERD) Hyperlipidemia Social History household members: other Smoking Status: Former smoker Assessment & Plan Assessment & Plan narrative: Goals of care: Patient has been denied at tertiary care centers for pancreatic biliary stent given age and comorbidities. His family has agreed to pursue hospice and he is DNR/DNI. Pain meds and ativan PRN ordered. # obstructing pancreatic mass resulting in severe biliary dilatation, hyperbilirubinemia -CT with pancreatic head mass, intrahepatic/extrahepatic dilation -T-bili 13.4 -patient denied at for biliary stent, hospice suggested -hospice now being arranged -continue pain control as needed. # A-fib with RVR -had runs of A-fib in the ED, cardiology recommended IV amio -finished amio drip -continues on apixaban # acute hypoxic respiratory failure -requiring 4L NC -cannot diurese further with low BP # CHF exacerbation -CXR with pulmonary edema -IV lasix given, limited by hypotension # HTN -hold home losartan as hypotensive # HLD -holding statin due to liver injury # GERD -continue PPI # BPH -continue home flomax Code status is DNR/DNI. DVT prophylaxis with Lovenox. Proxy is terri Baumann. Dispo: Pending hospice arrangement, likely tomorrow
--- NOTE | 2023-02-19 14:56 | CM.DPC ---
Addendum entered by Rebekah Hawthorne R.N. 02/19/23 15:20: Met with patient's son, Pastor, who is here at the hospital, he is aware of plan. Did mention that there could be a cost for transportation, son is aware. Updated hospitalist, Sarahy, at [facility], is aware as well, is requesting that some meds be faxed to the facility, since they are opening at 1300. Original Note: DCP Cont: Patient will be going to [facility] tomorrow via BLS. Spoke to Sarahy at intake at [facility], equipment should be delivered by 11:00, and they plan to open patient at 1300. Had hospitalist sign BLS form, and he is currently working on patient's POLST form. Went ahead and set up milk pickup driver here for noon, spoke to Jacques at the facility, he wanted to ensure that move in order form was here, which it is. Will update facility and let them know arrival time. P:DCP to continue to work on plan. [facility] will want DC Summary faxed to: [phone]. Will also need to ensure that some comfort meds are ordered for patient as well. Rebekah Hawthorne RN/Fruit Washer
[2023-02-19] MEDS: LORazepam 2 MG/ML INJ 0.5 MG IV ×2 (17:04→23:49)
[2023-02-19 20:00] VITALS: BP 108/67; PULSE 57; RESP 18; TEMP 36.4; O2SAT 100
[2023-02-20] MEDS: LORazepam 2 MG/ML INJ 0.5 MG IV (03:32)
--- NOTE | 2023-02-20 08:11 | PM.DS.1 ---
History of Present Illness History of Present Illness Date Patient Seen: 02/20/23 Chief complaint: Hypotension Narrative: Per admitting provider, Alvaro Thompson is an 87-year-old male with past medical history of diffuse large B-cell lymphoma, CHF, atrial fibrillation on Eliquis s/p pacemaker, HTN, HLD, COPD, GERD, BPH, and anxiety who presents with jaundice with abd pain and in A-fib RVR. Patient was recently at [facility] for CHF exacerbation and was discharged to [facility] where he has been the past 3 weeks. He then developed acute jaundice and abd pain. CT abd in ED showed pancreatic head mass obstructing biliary system. Attempted transfer for biliary stent but he was denied and deemed too high risk for any procedure. Hospice was suggested. He had runs of A-fib RVR in the ED and amio drip started due to low BP. He will be admitted for medical management of A-fib RVR, pain control and hospice setup. Patient currently reports intermittent upper abd pain. But it is currently well-controlled. He has no NV or diarrhea. He is accepting that this new diagnosis of terminal pancreatic cancer and just wishes to not suffer at the end. Discharge Providers Provider Date of admission: 02/17/23 12:54 Discharge Date: 02/20/23 Consults: 02/17/23 12:47 Consult to [facility] - Refund Specialist Stat Comment: hospice Discharge provider: Carlos Redding DO Summary Hospital Course Discharge Diagnosis: # obstructing pancreatic mass resulting in severe biliary dilatation, hyperbilirubinemia # A-fib with RVR # acute hypoxic respiratory failure # CHF exacerbation, unspecified if systolic or diastolic # HTN # HLD # GERD # BPH Hospital Course: This is an 87 year old male who presented with jaundice and abdominal pain. CT showed a pancreatic head mass, patient was denied at for biliary stent and hospice was suggested and persued by family and patient. He was also in afib with RVR, improved with amiodarone infusion. He was also hypoxic but unable to be diuresed for hypotension. His BP remains low normal off of all his usual medications. He was treated with some IV furosemide for CHF exacerbation with hypoxia but his BP did not tolerate diuresis very well and further diuresis was held. Echocardiogram was not performed given plans to discharge home on hospice, and inability to tolerate medical therapy in the case of possible reduced EF. No prior echo is available for review with regards to his ejection fraction. His apixaban was discontinued given patient's condition and plan for hospice. He was discharged back to his prior assisted living facility in [place] with hospice to open the same day. Morphine and ativan intensol prescriptions were sent for pain and anxiety management in case of any delay with hospice. Recommend readdressing POLST form with hospice or PCP to update to comfort only goals. Time Spent with Patient Time spent: Greater than 30 minutes Exam Vital Signs (past 8 hours): Oxygen Delivery Method Nasal Cannula Oxygen Flow Rate 4 Narrative Exam Narrative: GEN: ill-appearing elderly male who is diffusely jaundiced, cachectic HEENT: moist mucous membranes, PERRL NECK: trachea midline, no JVD CV: regular rate and rhythm, no murmurs PULM: clear bilaterally ABD: soft, RUQ tenderness, nondistended, no organomegaly EXT: warm and well perfused with no edema NEURO: awake, alert, oriented, no focal deficits Objective Labs 02/17/23 08:10 02/17/23 08:10 [facility] Medical History Anxiety Atrial fibrillation BPH (benign prostatic hyperplasia) CHF (congestive heart failure) COPD (chronic obstructive pulmonary disease) 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 H/O gastroesophageal reflux (GERD) Hyperlipidemia Social History household members: other Smoking Status: Former smoker Discharge Plan Discharge Plan Patient Disposition: Released, Other Other facility: Assisted Living - Hospice Provider Discharge Comment: 87 M admitted with pancreatic mass, inoperable and recommended for hospice. Discharge orders & Medications Discharge Orders: Discharge (Order); Ordered 02/20/23 Ordered By: Carlos Redding Prescriptions: New lorazepam [Lorazepam Intensol] 2 mg/mL concentrate 0.5 mg PO Q6H PRN (Reason: anxiety) Qty: 30 0RF morphine 10 mg/5 mL solution 10 mg PO Q6H PRN (Reason: pain) 7 Days Qty: 100 0RF polyethylene glycol 3350 17 gram Powder In Packet 17 gm PO DAILY PRN (Reason: Constipation) Qty: 30 0RF acetaminophen 325 mg Tablet 650 mg PO Q6H PRN (Reason: Fever/Mild Pain (1-3)) Qty: 60 0RF sennosides [senna] 8.6 mg Tablet 8.6 mg PO BID PRN (Reason: Constipation) Qty: 30 0RF Continued latanoprost 0.005 % drops 1 drp EYE-RIGHT DAILY tamsulosin 0.4 mg capsule 0.4 mg PO DAILY brimonidine 0.2 % drops 1 drp EYE-RIGHT DAILY nitroglycerin 0.4 mg tablet, sublingual 0.4 mg sublingual Q5M PRN (Reason: Chest Pain) albuterol sulfate 90 mcg/actuation HFA aerosol inhaler 2 puff inhalation Q6HR PRN (Reason: Shortness Of Breath) timolol maleate 0.5 % drops 1 drp EYE-RIGHT DAILY finasteride 5 mg tablet 5 mg PO DAILY Discontinued metoprolol succinate 50 mg tablet extended release 24 hr 25 mg PO BID prednisone 20 mg tablet 20 mg PO DAILY spironolactone 25 mg tablet 12.5 mg PO DAILY losartan 25 mg tablet 12.5 mg PO DAILY PRN (Reason: Hypertension) Patient Comments: If BP greater than 120mg sys. Rx Instructions: Take cholecalciferol (vitamin D3) 50 mcg (2,000 unit) Tablet 50 mcg PO DAILY Eliquis 5 mg tablet 2.5 mg PO BID Discharge Health Status Multidrug resistant organism: No MDRO Precautions: [place] Diet/Activity/Treatments Diet: Diet as Tolerated and Regular Liquid consistency: Normal/Thin Food texture: Regular Activity: As tolerated no restrictions
--- NOTE | 2023-02-20 08:31 | CM.DPC ---
Addendum entered by Rebekah Hawthorne R.N. 02/20/23 12:15: Patient was originally going to go to [place], received a call from nurse Stephanie, at their facility. She voiced concerns about patient's level of care, wondered why he was not going back to [place]. Let her know that this was family's decision. She did have some medical questions, asked ARVIND Adamson to update her. Received a call shortly after from Sarahy, intake at [facility], and stated that they were going to attempt to get patient transferred over to their Hospice House. She then called back and confirmed that they had consent from sonPastor, to transfer patient to [facility]. Updated nurse, Snow, and gave her the address for [facility] will be here to pick patient up shortly. Sarahy indicated, they have their own medications that they give, do not need any scripts. Will await patient pick out hand. Original Note: DCP Cont: Faxed over to [facility], at both fax numbers, move in sheet signed by provider, and med sheets with RX. Faxed [facility] over the DC Summary and med sheets. Gave BLS form, signed, to nurse, updated her that pick out hand time is noon, gave original scripts. SonPastor is aware of pick out hand time. P: Patient is discharging to [place], today, pick out hand at noon, BLS. Hospice open is 1300, equipment delivery approximately 11:00. Rebekah Hawthorne RN/Veterinary Medicine Scientist
[2023-02-20] MEDS: OXYCODONE IR 5 MG TABLET PO (09:01)
--- NOTE | 2023-02-20 12:34 | PC.NURSE ---
Day shift: Pt alert to self and situation only. Pt drowsy, rated pain 5/10 with hands, pt repositioned with bed tilt for pt comfort. Son at bedside. Pt appears comfortable. IV's discontinued. Report given to assisted living adult family home. Care management provided update: pt to go to hospice house in [place] instead. Report given to EMS transport team, paperwork provided to team. Pt transferred from bed to stretcher. Pt wheeled via stretcher with transport team at approximately 1230.
== END 2023-02-20 12:30 | disposition home or self-care (01) | DRG 438 ==
LOC: ED 02-17 12:52 → ICU 02-17 13:44 → AC 02-20 06:13 → ICU 02-20 06:13
PROVIDERS: Emergency Medicine; Admitting Provider Student in an Organized Health Care Education/Training Program; Emergency Provider Emergency Medicine; Referring Provider Emergency Medicine; Visit Provider Student in an Organized Health Care Education/Training Program
DX: K86.9 Disease of pancreas, unspecified (principal); J96.01 Acute respiratory failure with hypoxia; I48.91 Unspecified atrial fibrillation; K21.9 Gastro-esophageal reflux disease without esophagitis; N40.0 Benign prostatic hyperplasia without lower urinary tract symptoms; E80.6 Other disorders of bilirubin metabolism; I50.9 Heart failure, unspecified; Z87.891 Personal history of nicotine dependence; Z66 Do not resuscitate; Z95.0 Presence of cardiac pacemaker; Z79.01 Long term (current) use of anticoagulants
CPT/HCPCS: 36415; 71045; 74177; 76705; 80048; 80053; 80074; 80076; 80320; 80329; 82140; 83605; 83690; 83735; 83880; 85025; 85610; 85730; 87040; 87797; 93005; 96365; 96366; 99285; C9113; G0480; J0282; J1650; J1940; J2060; Q9967